=== PATIENT | female | born 1975 | race Caucasian/White ===

== ENCOUNTER 2022-03-31 12:18 | Emergency (ER) | payer MEDICAID, SELFPAY ==
[2022-03-31 12:38] VITALS: BP 118/80; PULSE 86; RESP 16; TEMP 36.4; O2SAT 99; BMI 24.2
== END 2022-03-31 15:23 | disposition left against medical advice (07) ==
PROVIDERS: PCP Family Medicine
DX: Z53.21 Procedure and treatment not carried out due to patient leaving prior to being seen by health care provider (principal)

== ENCOUNTER 2022-12-30 12:00 | Emergency (ER) | payer MEDICAID, SELFPAY ==
[2022-12-30 12:04] VITALS: BP 123/87; PULSE 109; RESP 18; TEMP 35.8; O2SAT 95
--- NOTE | 2022-12-30 12:22 | CRLHL7_ITS ---
For Patients: As a result of the Century Cures Act, medical imaging exams and procedure reports are released immediately into your electronic medical record. You may view this report before your referring provider. If you have questions, please contact your health care provider. INDICATION: Shortness of breath TECHNIQUE: Chest 2 views COMPARISON: None FINDINGS: Cardiovascular and mediastinum: Heart size and vasculature are normal in caliber and appearance. Lungs and pleural spaces: Lungs are clear. No sign of infiltrate or mass. No sign of pleural effusion. No pneumothorax. Bones and soft tissues: Distal clavicular hypertrophic changes. IMPRESSION: No acute cardiopulmonary disease. Dictated by Gian Perez MD @ 12/30/2022 1:09:27 PM (Electronically Signed)
[2022-12-30 12:51] LABS: Basophils Percent Auto 0.5 % (0.0-3.0); Eosinophils Percent Auto 1.2 % (0.0-7.0); Hematocrit 44.2 % (33.0-51.0); Hemoglobin* 15.8 gm/dL (12.0-16.0); Lymphocytes Percent Auto 35.3 % (20-44); Mean Corpuscular HGB Conc 36 gm/dL (32-36); Mean Corpuscular Hemoglobin 36 pg (26-34); Mean Corpuscular Volume 101 fL (80-100); Monocytes Percent Auto 7.5 % (0.0-11.0); Neutrophils Percent Auto 54.5 % (42.0-72.0); Platelet Count* 247 K/uL (140-440); RDW Coefficient of Variation % 13.7 % (11.5-15.5); Red Blood Count 4.38 m/uL (4.00-5.20); White Blood Count* 13.38 K/uL (4.50-11.00)
[2022-12-30 12:53] LABS: Slide Review Reflex No
--- NOTE | 2022-12-30 12:59 | ED.GENADULT ---
HPI - General Adult General Chief complaint: Cough Stated complaint: Short of breath, cough Time Seen by Provider: 12/30/22 12:14 Source: patient Mode of arrival: ambulatory Limitations: no limitations History of Present Illness HPI narrative: 47-year-old female coming in today complaining of cough and fever. Symptoms started last Thursday, cough has continued however she has not had a fever since last Thursday. Patient is undergoing a workup for autoimmune disease-she is unsure which autoimmune disease it is, states that has not been fully diagnosed yet. She describes it as a disease that causes inflammation of her nerves, causes neuropathy of the distal extremities. She states that she was on long-term steroid therapy was recently just discontinued on it. She was then started on mycophenolate. She has no history of asthma or COPD, she is not a smoker. Cough became productive today. She feels short of breath. Appetite is unchanged. She is also complaining of left-sided ear pain swelling on for several days. No drainage from that ear. Related Data Home Medications Medication Instructions Recorded Confirmed mycophenolate mofetil 500 mg tablet PO pt states antirejection med 12/30/22 pregabalin 150 mg capsule 150 mg PO 3XD 12/30/22 12/30/22 tizanidine 4 mg tablet 6 mg PO Q8H PRN muscle spasm 12/30/22 12/30/22 Previous Rx's Medication Instructions Recorded albuterol sulfate 90 mcg/actuation 1 inh inhalation QID PRN shortness 12/30/22 aerosol inhaler (Ventolin HFA) of breath or wheezing #6.7 grams amoxicillin 875 mg-potassium 1 tab PO BID 7 days #14 tabs 12/30/22 clavulanate 125 mg tablet azithromycin 250 mg tablet 250 mg PO DIRECTED #6 tabs 12/30/22 Allergies Allergy/AdvReac Type Severity Reaction Status Date / Time doxycycline Allergy Intermediate Rash Verified 03/31/22 12:46 Review of Systems Status of ROS: Reports: 10 or more systems reviewed and unremarkable except as noted in History and below Exam Narrative: Exam Narrative: Well-nourished well-developed patient in no acute distress. Alert and oriented. Answers questions appropriately. Mood and affect are appropriate. Thoughts are goal oriented and rational. No tangential or magical thinking noted. Patient sounds very congested and coughs frequently. HEENT: Normocephalic atraumatic. Pupils are equally round reactive to light. Extraocular muscles are intact. Conjunctivae are moist without any icterus noted. Moist mucous membranes. Posterior pharynx is normal. Neck is soft without any lymphadenopathy or thyromegaly. No masses are appreciated. Left TM is red and bulging, right TM is normal. Cardiovascular: Heart is regular rate and rhythm S1 and S2 are present without any murmurs. Lungs: Bilateral wheezing. Abdomen: Soft and nontender nondistended with normal bowel sounds. Extremities: Bilateral lower extremities are without edema. Skin: Well perfused without any obvious rashes. Const: Vital Signs, click to edit/add: Vital Signs - 24 hr 12/30/22 12:04 Temperature 96.4 F L Pulse Rate [Pulse Oximeter] 109 H Respiratory Rate 18 Blood Pressure [Ri ght Upper Arm] 123/87 Pulse Oximetry 95 Oxygen Delivery Me thod Room Air Course Course Hospital Course: Patient does have an elevated white cell count and CRP. Chest x-ray does not show any acute infiltrates. Triple swab and strep all negative. Potassium low at 3.1-oral supplement x1 provided in the ED today. Patient had a DuoNeb while she was here, she felt significantly better although her wheezing was not completely resolved. Blood cultures drawn secondary to recent fever, elevated white cell count and CRP and no obvious infiltrate on chest x-ray. Results pending. Vital Signs Vital signs: Initial Vital Signs Temperature 96.4 F L 12/30/22 12:04 Temperature Source Temporal Artery Scan 12/30/22 12:04 Pulse Rate 109 H 12/30/22 12:04 Pulse Rhythm Regular 12/30/22 12:04 Respiratory Rate 18 12/30/22 12:04 Blood Pressure 123/87 12/30/22 12:04 Blood Pressure Mean 99 12/30/22 12:04 Blood Pressure Position Sitting 12/30/22 12:04 Pulse Oximetry 95 12/30/22 12:04 Oxygen Delivery Method Room Air 12/30/22 12:04 Vital Signs Temperature 96.4 F L 12/30/22 12:04 Pulse Rate 109 H 12/30/22 12:04 Respiratory Rate 18 12/30/22 12:04 Blood Pressure 123/87 12/30/22 12:04 Pulse Oximetry 95 12/30/22 12:04 Oxygen Delivery Method Room Air 12/30/22 12:04 Temperature 96.4 F L 12/30/22 12:04 Pulse Rate 109 H 12/30/22 12:04 Respiratory Rate 18 12/30/22 12:04 Blood Pressure 123/87 12/30/22 12:04 Pulse Oximetry 95 12/30/22 12:04 Oxygen Delivery Method Room Air 12/30/22 12:04 Medical Decision Making MDM Narrative Medical decision making narrative: 47-year-old female with cough, recent fever-I do believe this patient clinically has pneumonia and therefore we will treat for pneumonia with Augmentin and azithromycin. This will also cover a left-sided otitis media. We will add albuterol inhaler at this time. Opted not to restart her on steroids given her recent long-term use. We discussed having a low threshold to return to the ED if she is getting worse instead of better. Follow-up in the next week with primary care. Lab Data Lab results reviewed: Yes I reviewed the patient's lab results Labs: Lab Results 12/30/22 12/30/22 Range/Units 12:19 12:44 WBC 13.38 H (4.50-11.00) K/uL RBC 4.38 (4.00-5.20) m/uL Hgb 15.8 (12.0-16.0) gm/dL Hct 44.2 (33.0-51.0) % MCV 101 H (80-100) fL MCH 36 H (26-34) pg MCHC 36 (32-36) gm/dL RDW Coeff of Jorge 13.7 (11.5-15.5) % Plt Count 247 (140-440) K/uL Neut % (Auto) 54.5 (42.0-72.0) % Lymph % (Auto) 35.3 (20-44) % [place] % (Auto) 7.5 (0.0-11.0) % Eos % (Auto) 1.2 (0.0-7.0) % Baso % (Auto) 0.5 (0.0-3.0) % Neut # (Auto) 7.30 H (1.7-7.0) K/uL Lymph # (Auto) 4.70 H (0.90-2.90) K/uL [place] # (Auto) 1.00 H (0.00-0.90) K/UL Eos # (Auto) 0.20 (0.00-0.50) K/uL Baso # (Auto) 0.10 (0.00-0.30) K/uL Abs Immat Gran (auto) 0.10 (0.00-0.30) K/uL Imm/Tot Granulo (auto) 1.0 % Sodium 135 (135-149) mmol/L Potassium 3.1 L (3.6-5.1) mmol/L Chloride 97 (96-114) mmol/L Carbon Dioxide 26 (20-32) mmol/L BUN 7 (5-24) mg/dL Creatinine 0.7 (0.5-1.5) mg/dL Estimated GFR 109 ml/min Glucose 110 (60-115) mg/dL Calcium 9.3 (8.4-10.6) mg/dL C-Reactive Protein 4.1 H (0.5-1.0) mg/dL SARS-CoV-2 (PCR) Negative SARS-CoV-2 (Negative) Influenza Type A (PCR) Negative PCR FLU A (Negative) Influenza Type B (PCR) Negative PCR FLU B (Negative) RSV (PCR) Negative PCR RSV (Negative) Group A Strep DNA NOT DETECTED (Not Detectd) Imaging Data Chest x-ray: Attestation: I have reviewed the pertinent imaging results. Radiologist's impression: Chest 2 views COMPARISON: None FINDINGS: Cardiovascular and mediastinum: Heart size and vasculature are normal in caliber and appearance. Lungs and pleural spaces: Lungs are clear. No sign of infiltrate or mass. No sign of pleural effusion. No pneumothorax. Bones and soft tissues: Distal clavicular hypertrophic changes. IMPRESSION: No acute cardiopulmonary disease. Discharge Plan Discharge Clinical Impression: Left otitis media, Pneumonia Patient Disposition: Home, Self-Care Condition: Stable Additional Instructions: Take all antibiotics as prescribed. Use inhaler as needed for shortness of breath and wheezing. Follow-up with your primary care provider in the next week. Return to the ER if you feel like you are getting worse instead of better. Prescriptions: New albuterol sulfate [Ventolin HFA] 90 mcg/actuation HFA aerosol inhaler 1 inh inhalation QID PRN (Reason: shortness of breath or wheezing) Qty: 6.7 0RF amoxicillin-pot clavulanate 875-125 mg tablet 1 tab PO BID 7 Days Qty: 14 0RF azithromycin 250 mg tablet 250 mg PO DIRECTED Qty: 6 0RF Taper: Z-CARLOS 500 mg Q24H for 1 Day and 0 Hour 250 mg Q24H for 4 Days and 0 Hour Rx Instructions: For 250 mg dose pack: take 500 mg today (day 1), then 250 mg for 4 days (days 2-5) No Action tizanidine 4 mg tablet 6 mg PO Q8H PRN (Reason: muscle spasm) mycophenolate mofetil 500 mg tablet PO Patient Comments: 500mg QID Rx Instructions: One 500mg tablet, po, QID pregabalin 150 mg capsule 150 mg PO 3XD Follow Up/Referrals: Cleo Cuevas DO [Primary Care Provider] - Stand Alone Forms: MyHealth Info Instructions
[2022-12-30 13:08] LABS: Chloride* 97 mmol/L (96-114); Potassium* 3.1 mmol/L (3.6-5.1); Sodium* 135 mmol/L (135-149)
[2022-12-30 13:10] LABS: Creatinine* 0.7 mg/dL (0.5-1.5); Estimated Glomerular Filt Rate 109 ml/min
[2022-12-30 13:11] LABS: Blood Urea Nitrogen* 7 mg/dL (5-24); Calcium* 9.3 mg/dL (8.4-10.6); Carbon Dioxide* 26 mmol/L (20-32); Glucose* 110 mg/dL (60-115)
[2022-12-30 13:14] LABS: C Reactive Protein* 4.1 mg/dL (0.5-1.0)
[2022-12-30 13:32] LABS: Strep A DNA Probe* NOT DETECTED (Not Detectd)
[2022-12-30] MEDS: POTASSIUM CHLORIDE 10 MEQ CAPSULE ER 20 MEQ PO (13:45)
[2022-12-30 13:48] LABS: PCR FLU A Negative PCR FLU A (Negative); PCR FLU B Negative PCR FLU B (Negative); PCR RSV Negative PCR RSV (Negative)
[2022-12-30 13:50] LABS: SARS PCR* Negative SARS-CoV-2 (Negative)
[2022-12-30] MEDS: IPRAT-ALBUT 0.5-2.5 MG/3 ML NEB 1 NEB IH (14:01)
[2022-12-30] MEDS: TIZANIDINE HCL 4 MG TABLET 6 MG PO (14:22)
[2022-12-30] MEDS: PREGABALIN 75 MG CAPSULE 150 MG PO (14:22)
[2022-12-30 14:54] VITALS: BP 119/86; PULSE 114; RESP 16; O2SAT 99
== END 2022-12-30 15:03 | disposition home or self-care (01) ==
PROVIDERS: Emergency Provider Family Medicine; PCP Family Medicine
DX: J18.9 Pneumonia, unspecified organism (principal); H66.92 Otitis media, unspecified, left ear
CPT/HCPCS: 36415; 71046; 80048; 85025; 86140; 87040; 87631; 87651; 94640; 99284; A9270

== ENCOUNTER 2024-05-09 20:23 | Outpatient (CLI) | payer MEDICAID, SELFPAY | END 2024-05-09 20:24 | disposition home or self-care (01) | LOC: AMB 05-11 00:54 | PROVIDERS: PCP Family Medicine; Visit Provider Family Medicine | DX: R55 Syncope and collapse (principal) | CPT/HCPCS: A0425; A0427 ==

== ENCOUNTER 2024-05-24 10:35 | Outpatient (CLI) | payer MEDICAID, SELFPAY | END 2024-05-24 10:36 | disposition home or self-care (01) | LOC: AMB 05-31 14:13 | PROVIDERS: PCP Family Medicine; Visit Provider Student in an Organized Health Care Education/Training Program | DX: R42 Dizziness and giddiness (principal); R53.1 Weakness | CPT/HCPCS: A0425; A0427 ==

== ENCOUNTER 2024-11-01 14:00 | Outpatient (RCR) | payer MEDICAID, SELFPAY | END 2025-01-03 16:42 | disposition home or self-care (01) | PROVIDERS: PCP Family Medicine; Visit Provider Family Medicine | DX: G61.81 Chronic inflammatory demyelinating polyneuritis (principal); G60.8 Other hereditary and idiopathic neuropathies; R60.0 Localized edema; R26.2 Difficulty in walking, not elsewhere classified; Z74.1 Need for assistance with personal care; Z51.89 Encounter for other specified aftercare | CPT/HCPCS: 97110; 97116; 97161; 97167; 97530; 97535 ==

== ENCOUNTER 2025-04-17 13:41 | Emergency (ER) | payer MEDICAID, SELFPAY ==
--- OUTSIDE RECORDS SUMMARY | 2022-09-15 09:05 | XMS_ITS | Continuity of Care Document ---
Author Organization [facility] Address [address] [address] [place] [address] Phone Care Team Providers Care Systems Consultant Name Role Phone Levi Badillo MD Unavailable Unavailabl e Allergies, Adverse Reactions, Alerts Substance Reaction Status Criticality doxycycline Active No Information Medications Medication Instructions Dosage Effective Dates (start - stop) Status Comments Lyrica 150 mg capsule take 1 capsule by oral route 2 times every day 150 MG - Active tizanidine 4 mg tablet take 1 tablet by oral route 4 times every day as needed not to exceed 3 doses in 24 hours 4 MG - Active Lasix 20 mg tablet take 1 tablet by ora l route every day 20 MG - Active nystatin 100,000 unit/gram topical ointment apply by topical route 2 times every day to the affected area(s) 0.00 - Active Voltaren Arthritis Pain 1 % topical gel apply (2G) by topical route 2 times every day to the affected area(s) 2 G - Active Tylenol Extra Strength 500 mg tablet take 2 tablet by oral route every 6 hours as needed 1000 MG - Active Prilosec OTC 20 mg tablet,delayed release take 1 capsule by oral route every day 1 capsule - Active Multivitamin unknown Oral - Active Procedures Procedure Date Offic/outpt E&m Estab Mod-hi 2 Office Cons New/estab Mod Routine Serum Collection Init Inpt Cons New/est Mod-hi 9 Init Inpt Cons New/est Mod-hi 9 Subsqt Hosp-da E&m Minr Compl 9 Advance Directives Directive Yes / No Effective Date File Name No Information Encounters Encounter Description Practice Location Reason(s) For Visit Diagnoses Date Provider Providers Copied on Encounter [facility], [address] [address], [place], [place], [id number], [place] tel:[phone] [facility] No Information 3 Rik Sims. [address], [place], [place], [id number] , [place]. tel: [phone] Offic/outpt E&m Estab Mod-hi 2 [facility], [address] [address], [place], [place], [id number], [place] tel:[phone] [facility] GI Symptoms or Concerns (chief complaint) Elevated liver function tests 3 Nadja Ramirez . [address], [place], [place], [id number] , [place]. tel: [phone] Referring Provider: Referral Self, USE FOR SELF REFERRALS. [facility], [address] [address], [place], [place], [id number], [place] tel:[phone] [facility] Hereditary hemochromatosis 3 Shmuel Kruger. [address], [place], [place], [id number] , [place]. tel: [phone] Office Cons New/estab Mod [facility], [address] [address], [place], [place], [address], [place] tel:[phone] [facility] GI Symptoms or Concerns (chief complaint) Hereditary hemochromatosis 3 Shmuel Kruger. [address], [place], [place], [address] , [place]. tel: [phone] Referring Provider: Cleo Cuevas DO, [address] [place] [address] [place], [address]. tel:[phone] [facility], [address] [address], [place], [place], [id number], [place] tel:[phone] [facility] No Information 3 Jethro Worley . [address], [place], [place], [address] , [place]. tel: [phone] Init Inpt Cons New/est Mod-hi [facility], [address] [address], [place], [place], [address], [place] tel:[phone] [facility] No Information 9 Keyon Azul. [address], [place], [place], [address] , [place]. tel: [phone] Referring Provider: Latha Goldberg, [address], [place], [address] . tel:[phone] Init Inpt Cons New/est Mod-hi [facility], [address] [address], [place], [place], [id number], [place] tel:[phone] [facility] No Information 9 Tremayne Tillman. [address], [place], [place], [id number] , [place]. tel: [phone] Referring Provider: Primo Tavarez, [address] [place] [address] [address], [place], [address] . tel:[phone] Family History Family Member Type Diagnosis Age At Onset Father Problem Diabetes mellitus Mother Problem (finding) Daughter Problem Alive and well Sister Problem Cancer, thyroid Sister Problem Cancer, breast Mother Problem Cancer, colon Father Problem Hypertension Immunizations Vaccine Date Status Comments SARS-COV-2 (COVID-19) vaccin e, mRNA, spike protein, LNP, preservative free, 30 mcg/0.3mL dose administered Note: [facility] bi-direct ional interface ; Source: Other Registry SARS-COV-2 (COVID-19) vaccin e, mRNA, spike protein, LNP, preservative free, 30 mcg/0.3mL dose administered Note: [facility] bi-direct ional interface ; Source: Other Registry tetanus toxoid, reduced diphtheria toxoid, and acellular pertussis vaccine, adsorbed administered Note: [facility] b i-directional interface ; Source: Other Registry Influenza, seasonal, injecta ble, preservative free administered Note: [facility] bi-direct ional interface ; Source: Other Registry Influenza, seasonal, injectable administe red Note: [facility] bi- directional interface ; Source: Other Registry Influenza, seasonal, injectable administe red Note: [facility] bi- directional interface ; Source: Other Registry measles, mumps and rubella v irus vaccine administered Note: [facility] bi-direct ional interface ; Source: Other Registry Payers Payer name Insurance type Covered constitution party ID Authoriza tievelia(s) Damien [facility] [id number] Social History Type Description Quantity Date Captured Comments Sex Female Smoking Status No Information Chief Complaint And Reason For Visit No Information Reason For Referral Reason For Referral No Information Plan Of Treatment Date Type Action Status Referral Ordered: MRCP Biliary/Pancreatic Ducts WITH Contrast Appointment date/timeframe: 08/04/2022 ordered Referral Ordered: Liver Biopsy With Ultrasound Guidance Appointment date/timeframe: 07/02/2022 ordered Referral Ordered: Liver Biopsy Image Guided Appointment date/timeframe: 07/11/2022 ordered History Of Present Illness Encounter Date Complaint History Of Prese nt Illness GI Symptoms or Concerns The pawel ent is a very pleasant 47-year-old female, who presents to [facility] today, accompanied by her . She was seen by 1 of my partners a month ago and has also been followed by Dr. Jethro Turpin.The patient has had a past medical history of many months of weakness and pain in her legs, feet, and hands. She has also had what she describes as an inadvertent 60-pound weight loss over the past year. She has also been having trouble with her vision.As part of this workup in the fall, she was discovered to have a ferritin of almost 800. Ceruloplasmin and alpha-1 antitrypsin levels were unremarkable. Hepatitis B and C testing was unremarkable. Celiac testing was normal, AMA was normal as well. She had hereditary hemochromatosis testing done and was found to be homozygous for the H63D gene. She was seen by 1 of my partners a month ago. At that time, ferritin was rechecked and it had dropped from 800 to 283, and her iron saturation level on June 12, 2022 was 17% GI Symptoms or Concerns I had th e pleasure of meeting Ms. Julissa Kinney, a 46-year-old woman, seen in consultation at the request of Dr. Cleo Cuevas and Dr. Jethro Turpin for evaluation of hemochromatosis.Julissa has been suffering with symptoms best described as neuropathy and neuropathic pain for many months. She has pain throughout her hands, wrists, and arms elsewhere, she has been losing her hair and her vision has been getting worse. They were seeking care for her assortment of symptoms and a broad-based set of laboratories and imaging was performed that suggested the liver and spleen were enlarged. This led to further testing that I reviewed and will detail below.WBC 7.0, HGB 10.3, PLT 227, AST 50, ALT 19, T bili 0.6, AP 135, creatinine 0.6, TSH 1.57, tTG normal, INR 1.2, ferritin 835, iron 175 (156), TIBC undetectable, iron saturation undetectable, copper 0.97, ceruloplasmin 24, alpha-1 antitrypsin 199 (elevated), SUSIE negative, AMA negative, anti-smooth muscle antibody negative, HIV negative, hepatitis C antibody negative, hepatitis B surface antibody negative, liver-kidney microsomal antibody negative.Importantly, genetic test for hereditary hemochromatosis revealed a homozygote mutation for H63D, no mutation for C282Y.Imaging showed no ascites on more recent ultrasound. CT scan of the abdomen and pelvis from April 2022 showed improved appearance of the liver with decreased size and improved attenuation, splenomegaly. A PET CT of the skull base to mid thigh showed a little hypermetabolic mass, mild splenomegaly, bilateral retroperitoneal lymph nodes.PAST MEDICAL HISTORYIncludes hypertension and Lyme disease.PAST SURGICAL HISTORYIncludes cholecystectomy.FAMILY HISTORYMother with colon cancer. No liver disease that is known.SOCIAL HISTORYFormer tobacco smoker. She used alcohol quite readily for about 22 years, but for the past several years, has used alcohol more sparingly. Functional Status Date Functional Assessmen t No Information Instructions Date Instruction Additional Infor suze 1. MRI/MRCP of the liver t Relat ed to Elevated liver function tests 1. Iron studies toda y.2. Liver biopsy.3. We will follow up within a month in the [facility].Thank you so much for involving me in the care of Ms. Kinney. Related to Hereditary hemochromatosis Assessments Type Assessment Date No Information Patient Care Teams Name Effective Dates (start - stop) Status Members No Information
[2025-04-17] VITALS (10 sets, daily range): BP systolic 115–137; BP diastolic 70–94; PULSE 95–101; RESP 16–24; TEMP 36.9; O2SAT 92–96; BMI 37.8
--- OUTSIDE RECORDS SUMMARY | 2025-04-17 13:47 | XMS_ITS | Clinical Summary ---
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
--- OUTSIDE RECORDS SUMMARY | 2025-04-17 13:47 | XMS_ITS | Clinical Summary ---
Author Organization [facility] Address [address] [place] [address] Care Team Providers Care Server Name Role Phone MasonSirashish Alvarez DO Primary Care Provider Atiya Blunt MD Unavailable [phone] Tanya Byrd PA-C Unavailable [phone] Allergies Active Allergy Reactions Criticality Noted Date Comments Doxycycline Rash 02/18/2019 RASH AND ITCHING Medications acetaminophen (TYLENOL) 500 mg oral tablet Take 2 tablets (1,000 mg) by mouth. 04/09/2022 Active cycloSPORINE 0.05 % ophthalmic (EYE) emulsion Instill 1 drop into the eye twice a day. Active famotidine (PEPCID) 20 mg oral tablet Take 1 tablet (20 mg) by mouth once a day as needed. 01/07/2023 Active multivitamin oral tablet Take 1 tablet by mouth Daily. Active omeprazole magnesium (PRILOSEC OTC) 20 mg oral delayed release tablet Take 1 tablet (20 mg) by mouth once a day as needed. Active triamcinolone acetonide (KENALOG) 0.1% cream External for 30 Days 04/23/2022 Active naltrexone 1.5 mg oral Cap Take by mouth. 05/04/2023 Active oxyCODONE, immediate release, (ROXICODONE) 5 mg oral tablet Take one tablet daily as needed for severe pain 03/15/2024 Active folic acid (FOLVITE) 1 mg oral tablet Take 1 tablet (1 mg) by mouth Daily. 03/15/2024 Active Pregabalin 200 mg oral capsule Take 200 mg by mouth three times a day. 90 capsule 5 03/17/2024 Active hydroCHLOROthia zide (HYDRODIURIL) 25 mg oral tablet Take 1 tablet (25 mg) by mouth Daily. 07/19/2024 Active potassium chloride (K-DUR) 10 mEq oral extended release tablet Take 2 tablets (20 mEq) by mouth twice a day. 08/05/2024 Active cholecalciferol , vitamin D3, 250 mcg (10,000 unit) oral Tab Take by mouth once daily. 09/29/2024 Active folic acid (FOLVITE) 1 mg oral tablet Take 1 tablet (1 mg) by mouth once daily. 09/29/2024 Active nortriptyline (PAMELOR) 75 mg oral capsule 1 Cap once daily. 90 capsule 3 01/13/2025 Active OXcarbazepine (TRILEPTAL) 150 mg oral tablet Take 1 tablet (150 mg) by mouth twice a day. 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 Sexual Orientation Straight 06/10/2023 12 :38 PM 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 Last Filed Vital Signs Vital Sign Reading Time Taken Comments Blood Pressure 146/96 01/04/2025 3:00 PM CDT Pulse 87 01/04/2025 3:00 PM CDT Temperature 36.8 C (98.2 F) 01/04/2025 3:00 PM CDT Respiratory Rate 16 01/04/2025 3:00 PM CDT Oxygen Saturation 96% 01/04/2025 3:00 PM CDT Inhaled Oxygen Concentration - - Weight 93 kg (205 lb) 03/17/2024 3:01 PM CDT Height 167.6 cm (5' 6) 03/17/2024 3:01 PM CDT Body Mass Index 33.09 03/17/2024 3:01 PM CDT Plan of Treatment Health Maintenance Due Date Last Done Comments Colonoscopy 1977 Lipid Screening 1977 Pap Smear 1977 Anxiety Screening (GORDO-2) 1978 Pneumococcal Vaccine (1 of 2 - PCV) 1996 COVID-19 Vaccine (3 - Pfizer risk series) 02/05/2021 01/08/2021, 12/14/2020 Adult Tetanus Booster 08/04/2021 08/05/2011 , 02/26/2006, 09/04/1994 Depression Assessment (PHQ-2) 06/17/2024 06/17/2023 Mammogram Screening 07/11/2024 07/11/2022, 07/11/2022 Influenza Vaccine (#1) 2025 0, 03/29/2007, 04/08/2004 RSV Vaccines (1 - 1-dose 75+ series) 2052 Hepatitis C Screening Completed 05/25/2024 , 03/20/2022 HPV Vaccine Aged Out No longer eligi ble based on patient's age to complete this topic Meningococcal B Vaccine Aged Out No l onger eligible based on patient's age to complete this topic [place] [address] [place] [address]/[employer] Care Teams Server Relationship Specialty Start Date End Date Cleo Cuevas [place] [address] PCP - General Family Medicine - 06/10/23 Atiya Blunt MD [address] [id number] Neurology 06/10/23 Tanya Byrd PA-C [address] [id number] Neurology 06/17/23
--- OUTSIDE RECORDS SUMMARY | 2025-04-17 13:47 | XMS_ITS | Clinical Summary ---
Author Organization [facility] [place] Address [address] [address] Phone Care Team Providers Care Manager Biostatistics Name Role Phone Cleo Cuevas DO Primary Care Provider [phone] Allergies Active Allergy Reactions Criticality Noted Date Comments Doxycycline Rash Low 02/18/2019 RASH AND ITCHING Medications acetaminophen (TYLENOL) 325 MG tablet Take 650 mg by mouth every 30 minutes as needed 5 Active cholecalciferol (Vitamin D-[address]) 25 MCG (1000 UT) tablet Take 1,000 Units by mouth in the morning. 5 Active famotidine (PEPCID) 20 MG tablet Take 20 mg by mouth once daily as needed 3 Active folic acid (FOLVITE) 1 MG tablet Take 1 mg by mouth 1 (one) time each day 4 Active magnesium oxide (MAG-OX) 400 MG tablet Take 400 mg by mouth in the morning and 400 mg in the evening. 5 Active nortriptyline (PAMELOR) 50 MG capsule Take 1 Capsule (50 mg) by mouth at bedtime.* 5 Active oxyCODONE (ROXICODONE) 5 MG immediate release tablet Take 2.5 mg by mouth every 6 hours as needed 4 Active polyethylene glycol (GLYCOLAX) 17 GM/SCOOP powder Take 17 g by mouth once daily as needed 4 Active potassium chloride (KLOR-CON M10) 10 MEQ CR tablet Take 20 mEq by mouth 1 (one) time each day 5 Active pregabalin (LYRICA) 200 MG capsule Take 200 mg by mouth in the morning and 200 mg at noon and 200 mg in the evening. 4 Active nystatin (MYCOSTATIN) powder Apply topically to affected area(s) 3 times daily if needed (rash).* 5 Active predniSONE (DELTASONE) 20 MG tablet Take 20 mg by mouth 1 (one) time each day Active sulfamethoxazol e-trimethoprim (BACTRIM,SEPTRA ) 400-80 MG per tablet Take 1 tablet by mouth in the morning and 1 tablet in the evening. Active hydroCHLOROthia zide 25 MG tablet Take 25 mg by mouth 1 (one) time each day Active RITUXIMAB IV Infuse into a venous catheter every 6 (six) months Active Active Problems Problem Noted Date Diagnosed Date Chronic inflammatory demyelinating polyradiculon europathy 10/08/2024 Localized edema 10/08/2024 Urinary incontinence 05/27/2024 Peripheral sensory neuropathy 05/26/2024 Alcohol abuse 04/04/2022 Alcoholic liver disease 04/04/2022 Hypertensive heart and chron ic kidney disease without heart failure, with stage 1 through stage 4 chronic kidney disease, or unspecified chronic kidney disease 01/28/2019 Abnormal vaginal Papanicolaou smear 01/14/2007 Overview (11/02/2024): 02/26/2006 Family History Medical History Relation Comments Hyperlipidemia Father Hypertension Father Cancer Mother colon cancer Hypertension Paternal Grandmother Cancer Sister Breast Cancer, T hyroid Cancer Relation Status Comments Father Mother Paternal Grandmother Sister Alive Social History Tobacco Use Types Packs/Day Years Used Date Smoking Tobacco: Former Cigarettes 0 Q uit: 2023 Smokeless Tobacco: Never Tobacco Cessation:Counseling Given: Not Answered Alcohol Use Standard Drinks/Week Comments Not Currently 3 (1 standard drink = 0.6 oz pur e alcohol) Comments Unknown Sex and Gender Information Value Date Recorded Sex Assigned at Female 09/14/2024 8:11 AM EDT Legal Sex Female 8:11 AM EDT Gender Identity Female 09/14/2024 8:11 AM EDT Sexual Orientation Not on file Last Filed Vital Signs Vital Sign Reading Time Taken Comments Blood Pressure 129/104 11/02/2024 3:15 PM CDT Pulse 93 11/02/2024 3:15 PM CDT Temperature - - Respiratory Rate - - Oxygen Saturation - - Inhaled Oxygen Concentration - - Weight 107 kg (236 lb) 11/02/2024 3:15 PM CDT Height 162.6 cm (5' 4) 11/02/2024 3:15 PM CDT Body Mass Index 40.51 11/02/2024 3:15 PM CDT Plan of Treatment Health Maintenance Due Date Last Done Comments Hepatitis B Vaccine (1 of 3 - 19+ 3-dose series) 06/27 Pneumococcal Vaccine: Peds ( 0 to 5 Years) and At-Risk Patients (6 to 49 Years) (1 of 2 - PCV) 1996 Influenza Vaccine (#1) 2025 Insurance [facility] Medicare Care Teams Manager Biostatistics Relationship Specialty Start Date End Date Cleo Cuevas [place] [address] PCP - General Family Medicine 09/14/24
--- OUTSIDE RECORDS SUMMARY | 2025-04-17 13:47 | XMS_ITS | Clinical Summary ---
Author Organization [employer] [facility] Address [address] [place] [id number] Care Team Providers Care Natural Resource Officer Name Role Phone Cleo Cuevas DO Primary Care Provider [phone] Spencer Ospina MD Unavailable Allergies Active Allergy Reactions Criticality Noted Date Comments Doxycycline Rash 02/18/2019 Medications famotidine (PEPCID) 20 mg tablet Take 1 Tablet (20 mg) by mouth one time if needed. 180 Tablet 3 023 Active polyethylene glycoL (MIRALAX) 17 gram/scoop powder Mix 1 scoop (17 g) in liquid then take by mouth once daily if needed for Constipation. 024 Active soft lens rinse,store solution (OPTI-FREE Replenish) soln Place 1-2 Drops into both eyes once daily if needed (for dry eyes). Pt has been using contact solution prn for dry eyes Active wheelchairIndicat ions:Chronic inflammatory demyelinating polyneuropathy (HC),Weakness Wheelchair: Tacos with leg rests: (Swing away) Length of need: 6 months Wheelchair seat width: 20, Wheelchair seat depth: 18, Wheelchair floor to seat height: 17 Tension adjustable back rest Height adjustable arm rests: full length arm pads Rear anti tippers Pelvic belt Heel loops Discharge to home on Thursday06/17/24 Please deliver to [facility] on Thursday06/15/24 AM MD name: Juwan Brizuela MD MD 1 Each 025 Active commodeIndication s:Chronic inflammatory demyelinating polyneuropathy (HC),Weakness As directed. Commode. For home use. Purchase, lifetime need. Standard commode needed for safe transfers and seated toileting. Height adjustable ensures optimal height for safe transfers. Commode can be used over toilet during the day, by bed at night 1 Each 025 Active durable medical equipment (DME)Indications: HTN (hypertension),Se nsory neuropathy Needs wheelchair cushion for wheelchair that was issued by 025 Active acetaminophen (TYLENOL) 325 mg tabletIndications :Pain Take 2 Tablets (650 mg) by mouth every 4 hours if needed for Pain (mild). Max acetaminophen dose: 4000mg in 24 hrs. 025 Active cholecalciferol (VITAMIN D3) 1,000 unit tabletIndications :Encounter for screening and preventative care Take 1 Tablet (1,000 units) by mouth once daily. 90 Tablet 3 025 Active hydroCHLOROthiazi de 25 mg tabletIndications :Primary hypertension Take 1 Tablet (25 mg) by mouth once daily. 90 Tablet 3 025 Active potassium chloride (KLOR-CON M10) 10 mEq extended-release tablet (part/cryst)Indic ations:Hypokalemi a Take 2 Tablets (20 mEq) by mouth two times daily with meals. 360 Tablet 3 025 Active nortriptyline 50 mg capsuleIndication s:Chronic inflammatory demyelinating polyneuropathy (HC),Peripheral sensory neuropathy Take 1 Capsule (50 mg) by mouth at bedtime. 90 Capsule 3 025 Active magnesium oxide 400 mg tabletIndications :Hypomagnesemia Take 1 Tablet (400 mg) by mouth two times daily. 180 Tablet 3 025 Active triamcinolone 0.1 % creamIndications: Bilateral lower extremity edema,Pruritus Apply topically to affected area(s) three times daily. 80 g 2 025 Active folic acid 1 mg tabletIndications :Folate deficiency,Macroc ytosis TAKE ONE TABLET BY MOUTH ONE TIME DAILY 90 Tablet 2 025 Active albuterol HFA (PRO-AIR; VENTOLIN; PROVENTIL) 90 mcg/actuation inhalerIndication s:Wheezing,Cough, unspecified type Inhale 1-2 Puffs by mouth every 4 hours if needed for Shortness Of Breath or Wheezing. 1 Each 1 025 Active nystatin 100,000 unit/g ointmentIndicatio ns:Intertrigo Apply topically to affected area(s) two times daily. 15 g 025 Active oxyCODONE (ROXICODONE) 5 mg immediate release tabletIndications :Pain Take 1 Tablet (5 mg) by mouth 2 times daily if needed for Pain. 60 Tablet 025 Active pregabalin (LYRICA) 200 mg capsuleIndication s:Chronic inflammatory demyelinating polyneuropathy (HC),Peripheral sensory neuropathy TAKE ONE CAPSULE BY MOUTH THREE TIMES DAILY 90 Capsule 025 Active pregabalin (LYRICA) 200 mg capsuleIndication s:Chronic inflammatory demyelinating polyneuropathy (HC),Peripheral sensory neuropathy TAKE ONE CAPSULE BY MOUTH THREE TIMES DAILY 90 Capsule 025 2024 Discontinued Active Problems Problem Noted Date Diagnosed Date Fecal incontinence 05/27/2024 Urinary incontinence 05/27/2024 Folate deficiency 05/27/2024 Lesion of caitlin 05/26/2024 Chronic immune sensory polyradiculopathy 025 Septic shock 05/24/2024 Weakness 05/10/2024 Acute cystitis without hematuria 05/10/2024 Chronic inflammatory demyelinating polyneuropath y 01/19/2024 Overview (05/29/2024): More accurately: chronic immune sensory polyradiculopathy (CISP) Sensory neuropathy 08/08/2022 Secondary sclerosing cholangitis 07/01/2022 Hypokalemia 04/05/2022 Alcoholic liver disease 04/04/2022 Extremity pain 04/04/2022 Macrocytic anemia 04/04/2022 Alcohol abuse 04/04/2022 Central sensitization to pain, probable 04/04/20 Hyponatremia 04/04/2022 Leukocytosis 02/18/2019 Abnormal LFTs 02/18/2019 RUQ abdominal pain 01/30/2019 Alcoholic hepatitis 01/30/2019 Cholangitis 01/28/2019 Calculus of bile duct with a cute cholangitis with obstruction 01/28/2019 HTN (hypertension) 01/28/2019 Fatty liver 01/28/2019 Abnormal Papanicolaou smear of vagina and vagina l HPV 01/14/2007 Overview (01/14/2007): 02/26/2006 Resolved Problems Problem Noted Date Diagnosed Date Resolved Date Pontine lesion 05/26/2024 05/27/2024 Cauda equina compression 05/24/202409/2024 Alcoholic polyneuropathy 06/02/202207/2024 Hepatic cirrhosis 04/23/2022 05/27/2024 Polyneuropathy 04/23/2022 05/27/2024 Sepsis 01/28/2019 02/18/2019 Unspecified essential hypertension 01/14/2007 02/18/2019 Screening for malignant neop lasm of the cervix 01/14/2007 02/18/2019 Overview (01/14/2007): 02/26/2006 Screening for lipoid disorders 01/14/2007 02/18/2019 Overview (01/14/2007): 02/26/2006 CHOL 210 HDL 71 LDL 124 TG 77 Encounters Date Type Department Care Team Description 03/20/2025 Refill [facility] [address] [place] [address] Cleo Cuevas, DO Refill Request (Pregabalin) 02/15/2025 Telephone [facility] [address] [address] Michael Lawrence MD Appointment (Clinic policy re medications) 02/09/2025 Refill [facility] [address] [place] [address] Cleo Cuevas DO Refill Request (Oxycodone, Pregabalin) from Last 3 Months Immunizations Immunization Administration Dates Next Due Influenza Virus, Unspecified 04/17/2010,03/29/20 07,04/08/2004 Influenza, IIV3 (Age 6-35 mos) 04/17/2010 Influenza, IIV3 (Age >=3 years) 03/29/2007,04/08 MMR 09/04/1994 Td (Age >=7 Years) 02/26/2006,09/04/1994 Tdap 08/05/2011 Family History Medical History Relation Name Comments Hyperlipidemia Father Hypertension Father Cancer-colon Mother Hypertension Paternal Grandmother Cancer-breast Sister 1 Thyroid cancer Sister 2 Relation Name Status Comments Father Maternal Grandfather Mother Paternal Grandmother Sister 1 Sister 2 Alive Social History Tobacco Use Types Packs/Day Years Used Date Smoking Tobacco: Never Smokeless Tobacco: Never Tobacco Cessation:Counseling Given: No Alcohol Use Standard Drinks/Week Comments Not Currently 0 (1 standard drink = 0.6 oz pur e alcohol) PHQ-2 Answer Date Recorded PHQ-2 TOTAL SCORE 0 09/12/2024 Social Connections Answer Date Recorded Do you often feel lonely or isolated from those around you? 0 06/02/2024 Financial Resource Strain Answer Date R ecorded Difficulty of Paying Living Expenses 3 01/19/2024 Difficulty of Paying Living Expenses Not on file 01/19/2024 Food Insecurity Answer Date Recorded Do you worry your food will run out before you are able to buy more? 1 06/02/2024 Transportation Needs Answer Date Record ed Does lack of transportation keep you from medica l appointments? 1 06/02/2024 Does lack of transportation keep you from work, meetings or getting things that you need? 1 06/02/2024 Housing Stability Answer Date Recorded What is your housing situation today? 1 06/02/2024 Interpersonal Safety Answer Date Record ed Are you being hit, kicked, p ushed or yelled at (see row info)? No 06/02/2024 Interpersonal Safety Abuse 12 - 18 Not on file 06/02/2024 Interpersonal Safety Ambulatory Vulnerability No t on file 06/02/2024 Utilities Answer Date Recorded Do you have trouble paying f or utilities (for example, heat, electricity, water, phone)? 1 06/02/2024 Comments No Sex and Gender Information Value Date Recorded Sex Assigned at Female 05/09/2024 9:14 PM SIZER HAND Legal Sex Female 5:41 AM SIZER HAND Gender Identity Female 05/09/2024 9:14 PM SIZER HAND Sexual Orientation Straight 05/09/2024 9: 14 PM SIZER HAND Occupation Industry Job Start Date Job End Date Not on file Not on file Not on file Not on file Obstetrics History Para Term AB IAB SAB Ectopic Multiple Livin g Live Births 2 2 2 2 2 Date Outcome GA Total Labor Labor/2nd/3rd Weight Sex Type Anes PTL Kim A1 A5 Name Clin Term Vag Living Term Vag Living Last Filed Vital Signs Vital Sign Reading Time Taken Comments Blood Pressure 106/73 11/29/2024 2:41 PM CDT Pulse 91 11/29/2024 2:41 PM CDT Temperature 36.4 C (97.5 F) 11/29/2024 2:41 PM CDT Respiratory Rate 16 09/07/2024 12:33 PM CDT Oxygen Saturation 95% 11/29/2024 2:41 PM CDT Inhaled Oxygen Concentration - - Weight 103.9 kg (229 lb) 09/12/2024 3:05 PM CDT Height 162.6 cm (5' 4) 06/24/2024 10:05 AM SIZER HAND Body Mass Index 39.31 06/24/2024 10:05 AM SIZER HAND Plan of Treatment Health Maintenance Due Date Last Done Comments Hepatitis B series for 19+ ( 1 of 3 - 19+ 3-dose series) 1996 Pneumococcal series for age 6-49 (1 of 2 - PCV) 1996 Tetanus booster 08/04/2021 08/05/2011, 09/2005, 09/04/1994 Colonoscopy through age 75 2022 Lipids for age 45-75 2022 Mammogram for age 45-75 2022 Pap test for age 21-65 01/04/2024 9, 01/03/2019, 03/29/2007 BMI (ht and wt on same day) for age 18+ 08/03/2024 08/04/2023, 04/23/2022, 03/03/2019, Additional history exists Influenza Vaccine (#1) 2025 0, 04/17/2010, 03/29/2007, Additional history exists Depression screening for age 12+ 09/14/2025 09/14/2024, 09/14/2024, 09/12/2024, Additional history exists RSV vaccine for adults or (1 - 1-dose 75+ series) 2052 HIV for age 15-65 Completed 05/24/2024, , 03/26/2022 Hepatitis C screening for ag e 18-79 Completed 05/25/2024, 03/20/2022 Procedures Procedure Name Priority Date/Time Associated Diagnosis Comments ANTI HCV Early AM 05/25/2024 5:31 AM SIZER HAND ANTI HIV 1/2 YEN 05/24/2024 12:25 PM SIZER HAND [employer]CR[employer]E STONE FABRICATOR THIN PREP PAP SCREEN IMAGED Routine 01/03/2019 3:30 PM CDT from Last 3 Months or Most Recently Relevant to Health Maintenance Results * ANTI HCV (05/25/2024 5:31 AM SIZER HAND) HEPATITIS C ANTIBODY Non-Reacti ve Non-React shital 05/25/2024 6:18 AM SIZER HAND [facility] Comment:Please note, per www .CDC.gov: If a patient is known to be at high risk of HCV infection, or is symptomatic, and the physician's suspicion of HCV infection is high, HCV RNA testing is often employed and is of diagnostic value, even after an initial negative anti-HCV test result. Blood BLOOD SPECIMEN / Unknown Butterfly / Unknown 05/25/2024 5:31 AM SIZER HAND 05/25/2024 5:40 AM SIZER HAND us John Fuentes MD SEND OUTS Final Resul t [facility] [address] [place] [address], * ANTI HIV 1/2 (05/24/2024 12:25 PM SIZER HAND) HIV-1/HIV-2 SCREEN Non-Reacti ve Non-Reacti ve 05/25/2024 2:30 PM SIZER HAND [facility] Comment:HIV-1 p24 and HIV-1/ HIV-2 Ab Not Detected. Blood BLOOD SPECIMEN / Unknown Butterfly / Unknown 05/24/2024 12:25 PM SIZER HAND 05/24/2024 12:32 PM SIZER HAND us John Fuentes MD SEND OUTS Final Resul t [facility] [address] [place] [address], [place] * CONCRETE STONE FABRICATOR THIN PREP PAP SCREEN IMAGED (01/03/2019 3:30 PM CDT) Case Report Gynecologic Cytology Report Case: [id number] Authorizing Provider: Ellen Feldman Collected: 01/03/2019 1530 MD Bibiana Ordering Location: [facility] Received: 01/05/2019 0901 First Screen: Sunil Duron Pathologist: Anna Herrmann MD Specimen: CONCRETE STONE FABRICATOR ThinPrep Vial Screening, Cervical/Vaginal 01/18/2019 1:10 PM CDT [facility] INTERPRETATION/ RESULT NEGATIVE FOR INTRAEPITHELIAL LESION OR MALIGNANCY (NIL) (none) 01/18/2019 1:10 PM CDT [facility] at 1310 CDT OTHER NON-NEOPLASTIC FINDING(S) Reactive cellular changes associated with inflammation/repa ir 01/18/2019 1:10 PM CDT [facility] SPECIMEN ADEQUACY Satisfactory for evaluation Endocervical component present 01/18/2019 1:10 PM CDT [facility] HPV REQUEST HPV and PAP 01/18/2019 1:10 PM CDT [facility] Date of LMP 01/18/2019 1:10 PM CDT [facility] Comment:3 months Last Pap Date 01/18/2019 1:10 PM CDT [facility] Comment:2009 Last Pap Result NIL 9 1:10 PM CDT [facility] Menstrual Status Abnormal bleeding 01/18/2019 1:10 PM CDT [facility] Automated Review Successful 01/18/2019 1:10 PM CDT [facility] Comment:Specimen processed s uccessfully by automated locksmith device, ThinPrep Imaging System, [employer] ANCILLARY TESTING CONCRETE STONE FABRICATOR HPV Ordered, Please see separate report 01/18/2019 1:10 PM CDT [facility]- [facility] Note The pap test is a screening technique, not a diagnostic procedure. It is used primarily to screen for squamous cancers and precursor lesions. Published studies have shown that it is subject to both false negative and false positive results. The pap test should not be used as the sole means to diagnose or exclude pre-malignant and malignant lesions. Cytology is screened and interpreted at [facility] - [address], [place] [address] and [facility] - [address]; [place] [address] and [facility] - [address]; [place] [address] and [facility] [address]; [place] [address] 01/18/2019 1:10 PM CDT [facility] Other (Cervical/Vagina l) 01/03/2019 3:30 PM CDT 01/05/2019 9:01 AM CDT us Ellen Feldman MD PATHOLOGY/CYTOLOGY Final Result [facility] [address] [place] [address], [place] from Last 3 Months or Most Recently Relevant to Health Maintenance Insurance [facility] Advance Directives Documents on File Type Date Recorded Patient Shipping Order Clerk Expl anation Power of Neon Tube Pumper 05/26/2024 05/26/2024 Healthcare Directive 05/16/2024 024 * Full Code (Latest Code Status on File) Date Activated Date Inactivated Comments 07/13/2024 7:35 AM * Full Code Date Activated Date Inactivated Comments 06/02/2024 4:34 PM 06/22/2024 12:55 PM Question Answer Comments Code Status Discussion: Reviewed Preferences * Full Code Date Activated Date Inactivated Comments 05/24/2024 10:10 PM 06/02/2024 2:03 PM Question Answer Comments Code Status Discussion: Reviewed Preferences * Full Code Date Activated Date Inactivated Comments 05/10/2024 1:23 PM 05/13/2024 6:39 PM Question Answer Comments Code Status Discussion: Reviewed Preferences * Full Code Date Activated Date Inactivated Comments 04/05/2022 12:25 AM 04/09/2022 8:19 PM Question Answer Comments Code Status Discussion: Reviewed Preferences Care Teams Natural Resource Officer Relationship Specialty Start Date End Date Cleo Cuevas DO [address] [place] [address] PCP - General Family Practice 04/04/22 Spencer Ospina MD [address] [place] [address] Consulting Physician Nephrology 10/08/24
--- NOTE | 2025-04-17 13:56 | CRLHL7_ITS ---
For Patients: As a result of the Cures Act, medical imaging exams and procedure reports are released immediately into your electronic medical record. You may view this report before your referring provider. If you have questions, please contact your health care provider. Indication: Shortness of breath Comparison: Two-view chest December 30, 2022 Technique: PA and lateral views of the chest Findings: There is minimal basilar atelectasis and parenchymal scar without dense consolidation, effusion or pneumothorax. The cardiomediastinal silhouette is within normal limits. The bony thorax is grossly intact. Impression: Mild interstitial prominence which may represent minimal bronchial thickening and/or pulmonary vascular congestion. No dense consolidation. Dictated by Misael Basurto MD @ 04/17/2025 3:02:46 PM (Electronically Signed)
[2025-04-17 14:15] LABS: Hematocrit* 44.0 % (33.0-51.0); Hemoglobin* 14.8 gm/dL (12.0-16.0); Immature Granulocytes Pct Auto 1.5 %; Mean Corpuscular HGB Conc 34 gm/dL (32-36); Mean Corpuscular Hemoglobin 37 pg (26-34); Mean Corpuscular Volume 109 fL (80-100); RDW Coefficient of Variation % 14.4 % (11.5-15.5); Red Blood Count* 4.03 m/uL (4.00-5.20); White Blood Count* 12.53 K/uL (4.50-11.00)
[2025-04-17 14:17] LABS: Immature Granulocytes Abs Auto 0.20 K/uL (0.00-0.30); Lymphocytes Absolute Auto 2.70 K/uL (0.90-2.90); Slide Review Reflex No
[2025-04-17 14:50] LABS: PCR FLU A Negative PCR FLU A (Negative); PCR FLU B Negative PCR FLU B (Negative); PCR RSV Negative PCR RSV (Negative); SARS PCR* Negative SARS-CoV-2 (Negative)
--- NOTE | 2025-04-17 15:04 | ED_ITS ---
HPI - General Adult General Chief complaint: Cough Stated complaint: Cough, SOB Time Seen by Provider: 04/17/25 13:45 Source: patient Mode of arrival: ambulatory Limitations: no limitations History of Present Illness HPI narrative: 49-year-old female coming in today complaining of a cough. Patient states that she just got home from a cruise where her cough developed. She denies fevers and chills. Cough is generally dry but is constant throughout the day and night. She is not short of breath however she does feel short of breath after a coughing fit. No changes in her appetite. She denies tobacco use. No history of asthma or COPD. Patient is immunocompromised- is taking mycophenolate mofetil for an autoimmune disorder that she is unsure of the name of. Related Data Home Medications ?Medication ?Instructions ?Recorded ?Confirmed mycophenolate mofetil 500 mg tablet PO pt states antir ejection med 12/30/22 pregabalin 150 mg capsule 150 mg PO 3XD 12/30/2212/30 tizanidine 4 mg tablet 6 mg PO Q8H PRN muscle spasm 12/30/22 12/30/22 Previous Rx's ?Medication ?Instructions ?Recorded albuterol sulfate 90 mcg/actuation 1 inh inhalation QI D PRN shortness 12/30/22 aerosol inhaler (Ventolin HFA) of breath or wheezing # 6.7 grams amoxicillin 875 mg-potassium 1 tab PO BID 7 days #14 t abs 12/30/22 clavulanate 125 mg tablet azithromycin 250 mg tablet 250 mg PO DIRECTED #6 ta bs 12/30/22 albuterol sulfate 90 mcg/actuation 1 inh inhalation QI D PRN shortness 04/17/25 aerosol inhaler of breath or wheezing #6.7 g vitaliy azithromycin 250 mg tablet See Taper PO DIRECTED #6 tabs 04/17/25 benzonatate 100 mg capsule 100 mg PO BID-TID PRN cough #14 04/17/25 caps prednisone 20 mg tablet 40 mg (2 x 20 mg) PO DAILY 2 days 04/17/25 #4 tabs Allergies Allergy/AdvReac Type Severity Reaction Status Date / Time doxycycline Allergy Intermediate Rash Verified 04/17/25 13:52 Review of Systems Status of ROS: Reports: 10 or more systems reviewed and unremarkable except as noted in History and below Exam Narrative: Exam Narrative: Well-nourished well-developed patient in no acute distress. Alert and oriented. Answers questions appropriately. Voice is raspy. HEENT: Normocephalic atraumatic. Pupils are equally round reactive to light. Extraocular muscles are intact. Conjunctivae are moist without any icterus noted. Moist mucous membranes. Cardiovascular: Heart is regular rate and rhythm S1 and S2 are present without any murmurs. Lungs: Bilateral wheezing is present. Abdomen: Soft and nontender nondistended with normal bowel sounds. Extremities: Bilateral lower extremities are without edema. Const: Vital Signs, click to edit/add: Vital Signs - 24 hr 04/17/25 13:47 04/17/25 14:25 04/17/25 14:26 Temperature 98.4 F Pulse Rate 98 100 Pulse Rate [Pulse Oximeter] 100 Respiratory Rate 20 Blood Pressure 137/94 H Blood Pressure [Ri ght Upper Arm] 127/88 Pulse Oximetry 94 96 95 Oxygen Delivery Me thod Room Air 04/17/25 14:30 04/17/25 14:31 04/17/25 14:45 Temperature Pulse Rate 95 98 95 Pulse Rate [Pulse Oximeter] Respiratory Rate 16 Blood Pressure 131/81 Blood Pressure [Ri ght Upper Arm] Pulse Oximetry 94 92 93 Oxygen Delivery Me thod Course Course ED Course: Patient treated with a DuoNeb and oral prednisone. Chest x-ray, read by me, is not show any acute infiltrates suggestive of pneumonia. CBC shows a slightly elevated white cell count 12.5, no significant left shift. Triple swab is negative. Patient had some relief after the DuoNeb. Repeat examination reveals wheezing is still present. DuoNeb was repeated which brought about more relief. Vital Signs Vital signs: Initial Vital Signs Temperature 98.4 F 04/17/25 13:47 Temperature Source Temporal Artery Scan 04/17/25 13:47 Pulse Rate 100 04/17/25 13:47 Pulse Rhythm Regular 04/17/25 13:47 Respiratory Rate 20 04/17/25 13:47 Blood Pressure 127/88 04/17/25 13:47 Blood Pressure Mean 101 04/17/25 13:47 Blood Pressure Position Sitting 04/17/25 13:47 Pulse Oximetry 94 04/17/25 13:47 Oxygen Delivery Method Room Air 04/17/25 13:47 Vital Signs Temperature 98.4 F 04/17/25 13:47 Pulse Rate 100 04/17/25 13:47 Respiratory Rate 20 04/17/25 13:47 Blood Pressure 127/88 04/17/25 13:47 Pulse Oximetry 94 04/17/25 13:47 Oxygen Delivery Method Room Air 04/17/25 13:47 Temperature 98.4 F 04/17/25 13:47 Pulse Rate 95 04/17/25 14:45 Respiratory Rate 16 04/17/25 14:31 Blood Pressure 131/81 04/17/25 14:31 Pulse Oximetry 93 04/17/25 14:45 Oxygen Delivery Method Room Air 04/17/25 13:47 Medications Administered Medications: Discontinued Medications Generic Name Dose Route Start Last Admin Trade Name Freq PRN Reason Stop Dose Admin Albuterol/Ipratropium 1 neb 04/17/25 15:08 04/17/25 15:15 Iprat-Albut 0.5-2.5 Mg/3 Ml Neb 04/17/25 15:09 1 neb ONCE ONE Administration Albuterol/Ipratropium 1 neb 04/17/25 15:43 04/17/25 15:47 Iprat-Albut 0.5-2.5 Mg/3 Ml [facility] 04/17/25 15:44 1 neb ONCE ONE Administration Medical Decision Making [facility] Narrative Medical decision making narrative: 49-year-old female presenting with cough and wheezing. This is the 2nd time the patient has had wheezing on presentation to our ED. I do think that she needs to have an evaluation with primary care or pulmonology. At this time will treat her with azithromycin give her her immunocompromised status, she will be sent home with an inhaler as well as 3 days total of prednisone. Lab Data Lab results reviewed: Yes I reviewed the patient's lab results Labs: Lab Results 04/17/25 04/17/25 Range/Units 13:52 14:03 WBC 12.53 H (4.50-11.00) K/uL RBC 4.03 (4.00-5.20) m/uL Hgb 14.8 (12.0-16.0) gm/dL Hct 44.0 (33.0-51.0) % MCV 109 H (80-100) fL MCH 37 H (26-34) pg MCHC 34 (32-36) gm/dL RDW Coeff of Jorge 14.4 (11.5-15.5) % Plt Count 283 (140-440) K/uL Neut % (Auto) 70.2 (42.0-72.0) % Lymph % (Auto) 21.9 (20-44) % [place] % (Auto) 5.0 (0.0-11.0) % Eos % (Auto) 1.1 (0.0-7.0) % Baso % (Auto) 0.3 (0.0-3.0) % Neut # (Auto) 8.80 H (1.7-7.0) K/uL Lymph # (Auto) 2.70 (0.90-2.90) K/uL [place] # (Auto) 0.60 (0.00-0.90) K/UL Eos # (Auto) 0.10 (0.00-0.50) K/uL Baso # (Auto) 0.00 (0.00-0.30) K/uL Abs Immat Gran (auto) 0.20 (0.00-0.30) K/uL Imm/Tot Granulo (auto) 1.5 % SARS-CoV-2 (PCR) Negative SARS-CoV-2 (Negative) Influenza Type A (PCR) Negative PCR FLU A (Negative) Influenza Type B (PCR) Negative PCR FLU B (Negative) RSV (PCR) Negative PCR RSV (Negative) Imaging Data Chest x-ray: Attestation: I have reviewed the pertinent imaging results. Radiologist's impression: Comparison: Two-view chest December 30, 2022 Technique: PA and lateral views of the chest Findings: There is minimal basilar atelectasis and parenchymal scar without dense consolidation, effusion or pneumothorax. The cardiomediastinal silhouette is within normal limits. The bony thorax is grossly intact. Impression: Mild interstitial prominence which may represent minimal bronchial thickening and/or pulmonary vascular congestion. No dense consolidation. Discharge Plan Discharge Clinical Impression: Cough, Wheezing Patient Disposition: Home, Self-Care Condition: Stable Additional Instructions: Take all antibiotics as prescribed. This will be for 5 days total Take steroids as prescribed. Take your 1st dose tomorrow as you had a dose in the ER today. This will be for a total of 3 days. You do need to follow-up with your primary care provider to discuss that you now have had 2 episodes where you presented with wheezing. You should be tested for asthma. Will also send you home with cough capsules to help with your cough. Take as needed/as directed. Lastly you will be sent home with an inhaler to use as needed. Return to the emergency department if you develop trouble breathing. Prescriptions: New azithromycin 250 mg tablet See Taper PO DIRECTED Qty: 6 0RF Taper: Z-CALROS 500 mg Q24H for 1 Day and 0 Hour 250 mg Q24H for 4 Days and 0 Hour Rx Instructions: For 250 mg dose pack: take 500 mg today (day 1), then 250 mg for 4 days (days 2-5) prednisone 20 mg tablet 40 mg PO DAILY 2 Days Qty: 4 0RF albuterol sulfate 90 mcg/actuation HFA aerosol inhaler 1 inh inhalation QID PRN (Reason: shortness of breath or wheezing) Qty: 6.7 0RF benzonatate 100 mg capsule 100 mg PO BID-TID PRN (Reason: cough) Qty: 14 0RF No Action tizanidine 4 mg tablet 6 mg PO Q8H PRN (Reason: muscle spasm) mycophenolate mofetil 500 mg tablet PO Patient Comments: 500mg QID Rx Instructions: One 500mg tablet, po, QID pregabalin 150 mg capsule 150 mg PO 3XD albuterol sulfate [Ventolin HFA] 90 mcg/actuation HFA aerosol inhaler 1 inh inhalation QID PRN (Reason: shortness of breath or wheezing) Qty: 6.7 0RF amoxicillin-pot clavulanate 875-125 mg tablet 1 tab PO BID 7 Days Qty: 14 0RF azithromycin 250 mg tablet 250 mg PO DIRECTED Qty: 6 0RF Taper: Z-CARLOS 500 mg Q24H for 1 Day and 0 Hour 250 mg Q24H for 4 Days and 0 Hour Rx Instructions: For 250 mg dose pack: take 500 mg today (day 1), then 250 mg for 4 days (days 2-5) Follow Up/Referrals: Cleo Cuevas DO [Primary Care Provider, Family Practice] Stand Alone Forms: [facility] Info Instructions
[2025-04-17] MEDS: IPRAT-ALBUT 0.5-2.5 MG/3 ML NEB 1 NEB IH ×2 (15:15→15:47)
== END 2025-04-17 16:41 | disposition home or self-care (01) ==
PROVIDERS: Emergency Provider Family Medicine; PCP Family Medicine
DX: R05.1 Acute cough (principal); R06.2 Wheezing
CPT/HCPCS: 36415; 71046; 85025; 87631; 99284; J7512